=== PATIENT | female | born 1990 | race Caucasian/White ===

== ENCOUNTER 2017-01-17 19:09 | Emergency (ER) | payer OTHER ==
[2017-01-17 19:18] VITALS: BMI 37.8
--- NOTE | 2017-01-17 19:55 | PDOC ---
Attending Attestation - Resident Resident Name: Rosalina Murphy - ED Attending Attestation I have performed the following: I have examined & evaluated the patient, The case was reviewed & discussed with the resident, I agree w/resident's findings & plan, Exceptions are as noted - HPI HPI: 01/17/17 19:58 27 yo female p/w rt adnexal pain for past 3-4 weeks. Pain worsens with sexual intercourse -pt with Mirena for control psh one prior c section pmh none no fever,no chills,no vomiting,no diarrhea - Physicial Exam PE: 01/17/17 21:39 wnwd 27 yo female w rt groin discomfort for several weeks HEENT wnl lungs cta b/l abd soft,nontender,no guarding extremities wnl neuro axox3,ambulatory - Medical Decision Making 01/17/17 21:41 cbc,comp,UA . cbc and chemistries are unremarkable. 01/18/17 01:05 labs reviewed and unremarkab;'e PELVIC US IUD is CBC and chemistries are normal limits. -Ultrasound shows IUD is in place 01/18/17 01:11
--- NOTE | 2017-01-17 19:58 | PDOC ---
History of Present Illness - General Chief Complaint: Pain Stated Complaint: PELVIC PAIN Time Seen by Provider: 01/17/17 19:43 - History of Present Illness Initial Comments: 01/17/17 19:51 CC: 3-4 week h/o RLQ abdominal pain Patient is a 27 y.o. female with no PMH who presents c/o increasingly severe stabbing RLQ pain that is intermittent, exacerbated by intercourse. Patient states the pain is localized to her RLQ with some radiation into her growin. Patient denies any associated symptoms (no dysuria/hematuria/increased frequency/urgency). Patient notes a recent h/o treatment for Chlamydia. Patient states she attempted to make an appointment with an conveyor feeder offbearer however was told there were no available appointments for a month. Patient notes she is on the Mirena IUD and her periods are intermittent. Patient is sexually active with one partner. Surgical: C/S Social: (-) nicotine, (+) alcohol: 20 drinks/monthly; (-) marijuana/cocaine/ heroin NKDA Past History - Past Medical History Allergies/Adverse Reactions: Allergies Allergy/AdvReac Type Severity Reaction Status Date / Time No Known Allergies Allergy Verified 01/17/17 19:14 Other medical history: Pt denies - Suicide/Smoking/Psychosocial Hx Smoking History: Smoker current status UNK Have you smoked in the past 12 months: No Information on smoking cessation initiated: No Hx Alcohol Use: No Drug/Substance Use Hx: No Substance Use Type: None Review of Systems - Review of Systems Constitutional: No: Chills, Fever HEENTM: No: Blurred Vision, Double Vision, Hearing Loss, Throat Pain Respiratory: No: Shortness of Breath, Wheezing Cardiac (ROS): No: Chest Pain, Edema, Lightheadedness, Palpitations ABD/GI: No: Constipated, Diarrhea, Nausea, Vomiting : No: Burning, Dysuria *Physical Exam - Vital Signs Last Vital Signs Temp Pulse Resp BP Pulse Ox 98.4 F 75 20 134/73 97 01/17/17 19:15 01/17/17 19:15 01/17/17 19:15 01/17/17 19:15 01/17/17 19:15 - Physical Exam General Appearance: Yes: Nourished, Appropriately Dressed, Obese Neck: positive: Trachea midline, Supple Respiratory/Chest: positive: Lungs Clear, Normal Breath Sounds Cardiovascular: positive: Regular Rhythm, Regular Rate, S1, S2 Gastrointestinal/Abdominal: positive: Normal Bowel Sounds, Soft, Other (RLQ tenderness to palpation; no inguinal lymphadenopathy appreciated) Musculoskeletal: positive: Normal Inspection. negative: CVA Tenderness Extremity: positive: Normal Capillary Refill, Normal Inspection Integumentary: positive: Normal Color, Dry, Warm ED Treatment Course - LABORATORY CBC & Chemistry Diagram: 01/17/17 20:12 01/17/17 20:12 - RADIOLOGY Radiology Studies Ordered: Category Date Time Status KIDNEY / RENAL US [US] Stat Ultrasound 01/17/17 19:50 Ordered Medical Decision Making - Medical Decision Making 01/17/17 20:24 Patient is a 27 y.o. female who presents c/o RLQ pain that radiates into her groin. Initial DDx includes ovarian cyst vs. ovarian torsion vs. early appendicitis vs. sequlae of unresolved STI infection. PLAN: 1. CBC, CMP 2. UA 3. STI: G/C and HIV (patient consented to HIV testing) 4. Renal U/S 01/17/17 23:30 Renal U/S shows non-obstructing (0.5 mm) R renal calculus. Pelvic U/S ordered as patient expresses adenexal pain. 01/17/17 23:57 Patient signed out to Dr. Flowers (Resident) and Dr. Mejia (Attending) *DC/Admit/Observation/Transfer Diagnosis at time of Disposition: Abdominal pain
[2017-01-17 20:23] LABS: BASOPHIL 0.7 % (0-2.0); EOSINOPHIL 0.8 % (0-4.5); MCH 29.9 pg (25.7-33.7); MCHC 34.3 g/dl (32.0-36.0); MEAN CELL VOLUME 87.3 fl (80-96); MEAN PLT VOLUME 8.1 fl (7.5-11.1); NEUTROPHILS 55.3 % (42.8-82.8); PLATELET COUNT 279 K/MM3 (134-434); RDW 13.2 % (11.6-15.6); WHITE BLOOD COUNT 9.3 K/mm3 (4.0-10.0)
[2017-01-17 20:36] LABS: URINE APPEARANCE SLCLOUDY; URINE BILIRUBIN NEGATIVE (NEGATIVE); URINE BLOOD NEGATIVE (NEGATIVE); URINE COLOR YELLOW; URINE GLUCOSE (UA) NEGATIVE (NEGATIVE); URINE KETONE NEGATIVE (NEGATIVE); URINE LEUK ESTERASE TRACE (NEGATIVE); URINE NITRITE NEGATIVE (NEGATIVE); URINE PROTEIN NEGATIVE (NEGATIVE); URINE UROBILINOGEN NEGATIVE mg/dL (0.2-1.0)
[2017-01-17 20:42] LABS: URINE MUCUS MANY; URINE RBC 1 /hpf (0-3); URINE WBC 3 /hpf (3-5)
[2017-01-17 20:58] LABS: ALBUMIN 3.5 g/dl (3.4-5.0); ANION GAP 5 (8-16); CALCIUM 8.6 mg/dL (8.5-10.1); CO2 27 mmol/L (21-32); CREATININE 0.8 mg/dL (0.55-1.02); GLUCOSE,RANDOM 105 mg/dL (74-106); SGOT/AST 16 U/L (15-37); SGPT/ALT 22 U/L (12-78)
[2017-01-17 21:00] LABS: ALK PHOS 64 U/L (45-117); BILIRUBIN,TOTAL 0.5 mg/dL (0.2-1.0)
[2017-01-17 21:09] LABS: HIV 1 & 2 AB NEGATIVE; HIV 1 AGp24 NEGATIVE
[2017-01-17 23:19] VITALS: BP 128/75; PULSE 76; TEMP 98.1
[2017-01-17] MEDS ORDERED: ACETAMINOPHEN 500 MG TABLET (FP) PO ONE (23:21)
[2017-01-17] MEDS ORDERED: ACETAMINOPHEN 325 MG TABLET (FP) ONE (23:23)
--- NOTE | 2017-01-17 23:59 | PDOC ---
*Physical Exam - Vital Signs Last Vital Signs Temp Pulse Resp BP Pulse Ox 98.1 F 76 18 128/75 97 01/17/17 23:18 01/17/17 23:18 01/17/17 23:18 01/17/17 23:18 01/17/17 19:15 ED Treatment Course - LABORATORY CBC & Chemistry Diagram: 01/17/17 20:12 01/17/17 20:12 - ADDITIONAL ORDERS Additional order review: Laboratory Results 01/17/17 01/17/17 01/17/17 20:12 20:12 20:12 Sodium 138 Potassium 3.9 Chloride 106 Carbon Dioxide 27 Anion Gap 5 L BUN 16 Creatinine 0.8 Creat Clearance w eGFR > 60 Random Glucose 105 Calcium 8.6 Total Bilirubin 0.5 AST 16 ALT 22 Alkaline Phosphatase 64 Total Protein 7.0 Albumin 3.5 Urine Color Yellow Urine Appearance Slcloudy Urine pH 6.0 Ur Specific [place] 1.025 Urine Protein Negative Urine Glucose (UA) Negative Urine Ketones Negative Urine Blood Negative Urine Nitrite Negative Urine Bilirubin Negative Urine Urobilinogen Negative Urine RBC 1 Urine WBC 3 Ur Epithelial Cells Few Urine Mucus Many Urine HCG, Qual Negative 01/17/17 20:12 RBC 4.47 MCV 87.3 MCHC 34.3 RDW 13.2 MPV 8.1 Neutrophils % 55.3 Lymphocytes % 36.4 Monocytes % 6.8 Eosinophils % 0.8 Basophils % 0.7 - Medications Given in the ED: ED Medications Discontinued Medications Generic Name Dose Route Start Last Admin Trade Name Freq PRN Reason Stop Dose Admin Acetaminophen 975 mg 01/17/17 23:21 01/17/17 23:22 Tylenol - PO 01/17/17 23:22 975 mg ONCE ONE Administration Medical Decision Making - Medical Decision Making 01/17/17 23:58 Care taken over from Dr. Murphy. Patient likely to be d/c pending TVUS 01/18/17 01:17 TVUS- IUD in place. Patient to be d/c *DC/Admit/Observation/Transfer Diagnosis at time of Disposition: Pelvic pain - Discharge Dispostion Disposition: HOME Condition at time of disposition: Stable - Patient Instructions Printed Discharge Instructions: DI for Pelvic Pain Additional Instructions: please follow up with your tile decorator
--- NOTE | 2017-01-18 01:13 | PDOC ---
*Physical Exam - Vital Signs Last Vital Signs Temp Pulse Resp BP Pulse Ox 98.1 F 76 18 128/75 97 01/17/17 23:18 01/17/17 23:18 01/17/17 23:18 01/17/17 23:18 01/17/17 19:15 ED Treatment Course - LABORATORY CBC & Chemistry Diagram: 01/17/17 20:12 01/17/17 20:12 - ADDITIONAL ORDERS Additional order review: Laboratory Results 01/17/17 01/17/17 01/17/17 20:12 20:12 20:12 Sodium 138 Potassium 3.9 Chloride 106 Carbon Dioxide 27 Anion Gap 5 L BUN 16 Creatinine 0.8 Creat Clearance w eGFR > 60 Random Glucose 105 Calcium 8.6 Total Bilirubin 0.5 AST 16 ALT 22 Alkaline Phosphatase 64 Total Protein 7.0 Albumin 3.5 Urine Color Yellow Urine Appearance Slcloudy Urine pH 6.0 Ur Specific [place] 1.025 Urine Protein Negative Urine Glucose (UA) Negative Urine Ketones Negative Urine Blood Negative Urine Nitrite Negative Urine Bilirubin Negative Urine Urobilinogen Negative Urine RBC 1 Urine WBC 3 Ur Epithelial Cells Few Urine Mucus Many Urine HCG, Qual Negative 01/17/17 20:12 RBC 4.47 MCV 87.3 MCHC 34.3 RDW 13.2 MPV 8.1 Neutrophils % 55.3 Lymphocytes % 36.4 Monocytes % 6.8 Eosinophils % 0.8 Basophils % 0.7 - Medications Given in the ED: ED Medications Discontinued Medications Generic Name Dose Route Start Last Admin Trade Name Freq PRN Reason Stop Dose Admin Acetaminophen 975 mg 01/17/17 23:21 01/17/17 23:22 Tylenol - PO 01/17/17 23:22 975 mg ONCE ONE Administration *DC/Admit/Observation/Transfer Diagnosis at time of Disposition: Pain in pelvis Diagnosis at time of Disposition: (Ruled Out): Abdominal pain - Discharge Dispostion Disposition: HOME Condition at time of disposition: Stable - Patient Instructions Printed Discharge Instructions: DI for Pelvic Pain Additional Instructions: please follow up with your radiation therapy technician
== END 2017-01-18 01:43 | disposition home or self-care (01) ==
LOC: JER 19:09
DX: R10.2 Pelvic and perineal pain (principal); N20.0 Calculus of kidney
CPT/HCPCS: 36415; 76775-TC; 76830-TC; 80053; 81003; 81015; 84703; 85025; 87389; 87491; 87591; 99283-25

== ENCOUNTER 2018-04-29 17:17 | Emergency (ER) | payer OTHER ==
[2018-04-29 17:29] VITALS: BP 130/75; PULSE 89; TEMP 96.5; BMI 29.2
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
[2018-04-29] MEDS ORDERED: NAPROXEN 500 MG TABLET (FP) PO ONE (18:58)
[2018-04-29] MEDS ORDERED: NAPROXEN 500 MG TABLET (FP) ONE (19:09)
== END 2018-04-29 20:36 | disposition home or self-care (01) ==
LOC: JERFT 17:17
DX: S29.8XXA Other specified injuries of thorax, initial encounter (principal); R07.89 Other chest pain; V43.62XA Car passenger injured in collision with other type car in traffic accident, initial encounter; Y92.412 Parkway as the place of occurrence of the external cause; W22.19XA Striking against or struck by other automobile airbag, initial encounter; Y93.89 Activity, other specified; Y99.8 Other external cause status
CPT/HCPCS: 71101-TC-RT-FY; 99281-25